=== PATIENT | female | born 1955 | race Caucasian/White ===

== ENCOUNTER 2017-01-15 09:55 | Day surgery (SDC) | payer OTHER ==
[~2017-01-15] VITALS: Ht 152.4 cm; Wt 65.6 kg
[2017-01-15 10:30] VITALS: Ht 152.4 cm; Wt 65.6 kg
[2017-01-15] MEDS ORDERED: GLIM4TAB PO (10:41)
[2017-01-15] MEDS ORDERED: METF1000 PO (10:41)
[2017-01-15] MEDS ORDERED: SIMV20TA2 PO (10:41)
[2017-01-15] MEDS ORDERED: ASPI81TA3 PO (10:41)
[2017-01-15] MEDS ORDERED: LISI10TA2 PO (10:41)
[2017-01-15 11:10] VITALS: BP 115/55; PULSE 58; RESP 34
--- NOTE | 2017-01-15 11:46 | OPPN ---
Date/Time of Note Date/Time of Note DATE: 01/15/17 TIME: 11:45 Operative Report Preoperative Diagnosis Screening Postoperative Diagnosis 3 colon polyps were removed Internal hemorrhoids Operation/Procedure Performed Colonoscopy biopsy and polypectomy Surgeon see signature line orthodontist assistant None Anesthesia: moderate sedation Estimated blood loss: none Transfusion Required none Specimen Colon polyps Grafts/Implants none Complications none ROSALINDA HUBER MD Jan 15, 2017 11:46
[2017-01-15] MEDS ORDERED: MIDAZOLAM 1 MG/ML 2 ML INJ ONE ×2 (11:59)
[2017-01-15] MEDS ORDERED: FENTAnyl 50 MCG/ML VIAL ONE (11:59)
--- NOTE | 2017-01-15 12:08 | GILP ---
DATE OF PROCEDURE: 01/15/2017 PROCEDURE PERFORMED: Colonoscopy, biopsy and polypectomy. SURGEON: Cesar Coello MD. PREOPERATIVE DIAGNOSIS: Screening colonoscopy. POSTOPERATIVE DIAGNOSES: 1. Colonoscopy all the way to the cecum. 2. Right colon polyp was removed using the snare and the electrocautery. 3. Small right colon polyp was removed using biopsy forceps. 4. Sigmoid colon polyp was removed using the snare and the electrocautery. 5. Internal hemorrhoids. INDICATIONS FOR PROCEDURE: Ms. Renata Castro is a 61- year-old female patient who was scheduled for screening colonoscopy. The procedure and possible complications were well explained to the patient. She understood and consented to the procedure. DESCRIPTION OF PROCEDURE: Under influence of fentanyl and Versed, the colonoscope was carefully introduced in the rectum, and under direct vision, it was advanced all the way to the cecum. FINDINGS: The patient had a right colon polyp and it was removed using the snare and the electrocautery. She also had another small polyp in the right colon and it was removed using biopsy forceps. She was noted to have a sigmoid colon polyp and it was removed using the snare and the electrocautery. She had internal hemorrhoids. She tolerated the procedure very well. There was no complication from the procedure. At the end of procedure, she was awake with stable vital signs and she was discharged home in the care of her family. IMPRESSION: Please see postop diagnoses. PLAN: 1. Await histopathology report. 2. Next screening colonoscopy in 5 years. Dictated By: MD ROBERT Loving/suresh/bronson /Document#: [id number]
== END 2017-01-15 14:36 | disposition home or self-care (01) ==
LOC: GIL 09:55
PROVIDERS: ATTEND Internal Medicine Gastroenterology
DX: Z12.11 Encounter for screening for malignant neoplasm of colon (principal); D12.5 Benign neoplasm of sigmoid colon; K64.8 Other hemorrhoids; E11.9 Type 2 diabetes mellitus without complications; I10 Essential (primary) hypertension
CPT/HCPCS: 45385; 82962; 88305; J2250; J3010; Z7610